=== PATIENT | female | born 1995 | race Caucasian/White ===

== ENCOUNTER 2020-06-22 12:16 | Emergency (ER) | payer OTHER ==
[~2020-06-22 12:16] MED LIST: BETAPACE120 MG PO; ETODOLAC400 MG PO; KEFLEX CAP 500500 MG PO; ORTHO MICRONO0.35 MG PO
[2020-06-22 15:06] LABS: BUN/CREATININE RATIO 19 (0-10)
== END 2020-06-22 15:25 | disposition home or self-care (01) ==
LOC: ER1 12:16
PROVIDERS: Emergency Medicine
DX: I42.2 Other hypertrophic cardiomyopathy (principal)
CPT/HCPCS: 80048; 82550; 82553; 83735; 83874; 84484; 93005; 99284

== ENCOUNTER 2021-06-12 23:13 | Emergency (ER) | payer OTHER ==
[2021-06-13 00:26] LABS: HEMOGLOBIN 12.1 gm/dl (12.3-15.3); RED BLOOD COUNT 4.02 M/UL (4.00-5.10); WHITE BLOOD COUNT 9.1 K/UL (4.5-11.0)
[2021-06-13 00:53] LABS: BUN/CREATININE RATIO 20 (0-10)
== END 2021-06-13 02:13 | disposition home or self-care (01) ==
LOC: ER1 23:13
PROVIDERS: Physician Assistant
DX: O99.891 Other specified diseases and conditions complicating pregnancy (principal); R00.2 Palpitations; O99.281 Endocrine, nutritional and metabolic diseases complicating pregnancy, first trimester; E87.6 Hypokalemia; Z95.0 Presence of cardiac pacemaker
CPT/HCPCS: 80053; 82550; 82553; 83735; 84100; 84484; 84702; 85025; 93005; 99285

== ENCOUNTER 2021-10-02 23:38 | Emergency (ER) | payer OTHER ==
[2021-10-03 00:46] LABS: HEMOGLOBIN 11.2 gm/dl (12.3-15.3); RED BLOOD COUNT 3.63 M/UL (4.00-5.10); WHITE BLOOD COUNT 11.3 K/UL (4.5-11.0)
[2021-10-03 01:11] LABS: BUN/CREATININE RATIO 24 (0-10)
== END 2021-10-03 04:20 | disposition short-term general hospital (02) ==
LOC: ER1 23:38
PROVIDERS: Family Medicine
DX: I49.9 Cardiac arrhythmia, unspecified (principal); I11.9 Hypertensive heart disease without heart failure; I43 Cardiomyopathy in diseases classified elsewhere
CPT/HCPCS: 80053; 82550; 82553; 84484; 85025; 93005; 99285